=== PATIENT | male | born 2000 | race Two or more races ===

== ENCOUNTER 2019-08-01 22:40 | Emergency (ER) | payer OTHER ==
[~2019-08-01] VITALS: Ht 172.7 cm; Wt 117.9 kg
[2019-08-01 22:45] VITALS: Ht 172.7 cm; Wt 117.9 kg
[2019-08-02 00:01] VITALS: BP 119/65
== END 2019-08-02 00:01 | disposition home or self-care (01) ==
LOC: ED 22:40
DX: S09.8XXA Other specified injuries of head, initial encounter (principal); W18.09XA Striking against other object with subsequent fall, initial encounter; Y93.89 Activity, other specified; Y92.89 Other specified places as the place of occurrence of the external cause; Y99.8 Other external cause status